=== PATIENT | female | born 1955 | race Caucasian/White ===

== ENCOUNTER 2017-07-07 14:29 | Emergency (ER) | payer MEDICAID ==
[2017-07-07 14:33] VITALS: BP 130/62; BMI 17.7
[2017-07-07 17:11] LABS: BILIRUBIN,URINE NEGATIVE (NEGATIVE); BLOOD/HEMOGLOBIN,URINE NEGATIVE (NEGATIVE); GLUCOSE, URINE NEGATIVE (NEGATIVE); KETONES,URINE NEGATIVE (NEGATIVE); LEUKOCYTE ESTERASE ,URINE 2+ (NEGATIVE); NITRITES,URINE NEGATIVE (NEGATIVE); PROTEIN,URINE NEGATIVE (NEGATIVE); UROBILINOGEN,URINE NORMAL (NORMAL)
[2017-07-07 17:21] LABS: APPEARANCE,URINE HAZY (CLEAR); COLOR,URINE YELLOW (YELLOW)
[2017-07-07 17:22] LABS: BACTERIA,URINE TRACE /HPF (NEGATIVE); RBC,URINE 0-2 /HPF (NEGATIVE); SQUAMOUS EPITHELIAL CELL,UR FEW /HPF (NEGATIVE)
--- NOTE | 2017-07-07 17:25 | DR.GENAD ---
HPI - PCP Primary Care Physician: jose - Complaint/Symptoms Chief Complaint Doctors Comments: Patient complains of problems with her bladder and has been burning when she urinates and before she urinate she has pressure and has been having lower back pain. States she was in the hospital in [place] with UTI and they gave her antibiotics for three days and she did not hurt but the pain came back. She is having swelling of her legs and has been taking a water pill for five days but stopped. She has some more water pills at home. She denies chest pain or SOB. She denies fever or chills. She denies hematuria. Chief Complaint:: patient stated that for the past 2 days her bladder has been hurting and lower back has been hurting. - Nurses notes reviewed Nurses Notes Review: Yes - Source History Provided: Patient - Mode of Arrival Mode of Arrival: Ambulatory - Timing Onset of Chief Complaint: 07/05/17 Came on: Gradually - Duration Duration: Constant How lon Duration: Days - Location Location: lower abdominal pain - Severity Severity: Mild - Modifying Factors Worsens:: urinating Improves:: nothing PMH - PMH Past Medical History: Yes Past Medical History: COPD, Depression, Hypertension, [place] Past Surgical History: Yes Surgical History: Angioplasty/Stents, Cholecystectomy, Tonsillectomy - Family History History of Family Medical Conditions: Yes Family Medical History: Diabetes Mellitus, Hypertension - Social History Does patient currently use any type of tobacco product: No Have you used tobacco products in the last 12 months: No Type of Tobacco Use: None Does any household member use tobacco: No Alcohol Use: None Do you use any recreational Drugs:: No Lives With: Family Lives Where: Home - infectious screening In the last 2 months have you had wt loss of >10#?: NO Have you had fever, night sweats or hemotysis?: No Have you traveled outside the country in the last 6 months?: No Isolation: Standard ROS - Review of Systems Constitutional: No Symptoms Reported Eyes: No Symptoms Reported ENTM: No Symptoms Reported Respiratoy: No Symptoms Reported Cardiovascular: No Symptoms Reported Gastrointestinal/Abdominal: No Symptoms Reported Genitourinary: No Symptoms Reported, Dysuria, Frequency Neurological: No Symptoms Reported Musculoskeletal: Back Pain. negative: No Symptoms Reported, See HPI, Gout, Joint Pain, Joint Swelling, Muscle Pain, Muscle Stiffness, Neck Pain, Right, Left, Neck, Chest wall, Rib(s), Back, Shoulder, Arm, Elbow, Forearm, Wrist, Hand , Pelvis, Hip, Leg, Knee, Ankle, Foot, Other Integumentary: No Symptoms Reported Hematologic/Lymphatic: No Symptoms Reported Endocrine: No Symptoms Reported Psychiatric: No Symptoms Reported PE - Vital Signs Vitals: Temperature 98.6 F Pulse Rate 75 Respiratory Rate 16 Blood Pressure 130/62 O2 Sat by Pulse Oximetry 100 - General Limitations: No Limitations General Appearance: Alert, In Distress (slight) - Head Head Exam: Normal Inspection, Atraumatic, Normocephalic - Eyes Eye exam: Normal Appearance, PERRL, EOMI. negative: Scleral Icterus, Conjunctival Injection, Nystagmus, Miosis, Mydrasis, Periorbital Swelling, Periorbital Tenderness, Other - ENT ENT Exam: Normal Exam, Normal Oropharynx, Normal External Ear Exam, Mucous Membranes Moist, TM's Normal Bilaterally External Ear Exam: Normal External Inspection TM/Canal Exam: Bilateral Normal Nose Exam: Normal Nose Exam Mouth Exam: Normal Inspection Throat Exam: Normal Inspection - Neck Neck Exam: Normal Inspection, Full ROM, Trachea Midline - Chest Chest Inspection: Normal Inspection - Respiratory Respiratory Exam: Normal Lung Sounds Bilat Respiratory Exam: Bilateral Clear to Auscultation - Cardiovascular Cardiovascular Exam: Regular Rate, Normal Rhythm, Normal Heart Sounds - Abdominal Exam Abdominal Exam: Normal Inspection, Normal Bowel Sounds, Soft, Tenderness ( suprapubic tenderness) - Extremities Extremities Exam: Normal Inspection, Full ROM, Normal Capillary Refill. negative: Tenderness, Edema, Joint Swelling, Calf Tenderness, Other - Back Back Exam: Normal Inspection, Full ROM - Neurologic Neurological Exam: Alert, Oriented X3, CN II-XII Intact, Normal Gait, Reflexes Normal - Psychiatric Psychiatric Exam: Normal Affect, Normal Mood - Skin Skin Exam: Warm, Dry, Intact, Normal Color ROR - Labs Reviewed Laboratory Results Reviewed?: Yes (all lab work reviewed and discussed with patient) Laboratory: Specimen Type Clean catch urine 07/07/17 16:59 Urine Color Yellow (YELLOW) 07/07/17 16:59 Urine Appearance Hazy (CLEAR) 07/07/17 16:59 Urine pH 5.0 (5.0 - 8.0) 07/07/17 16:59 Ur Specific [place] 1.010 (1.000-1.030) 07/07/17 16:59 Urine Protein Negative (NEGATIVE) 07/07/17 16:59 Urine Glucose (UA) Negative (NEGATIVE) 07/07/17 16:59 Urine Ketones Negative (NEGATIVE) 07/07/17 16:59 Urine Occult Blood Negative (NEGATIVE) 07/07/17 16:59 Urine Nitrite Negative (NEGATIVE) 07/07/17 16:59 Urine Bilirubin Negative (NEGATIVE) 07/07/17 16:59 Urine Urobilinogen Normal (NORMAL) 07/07/17 16:59 Ur Leukocyte Esterase 2+ (NEGATIVE) 07/07/17 16:59 Urine RBC 0-2 /HPF (NEGATIVE) 07/07/17 16:59 Urine WBC 3-5 /HPF (NEGATIVE) 07/07/17 16:59 Ur Squamous Epith Cells Few /HPF (NEGATIVE) 07/07/17 16:59 Urine Bacteria Trace /HPF (NEGATIVE) 07/07/17 16:59 Ur Culture Indicated? No/not indicated 07/07/17 16:59 - Diagnosis Discharge Problem: Cystitis, Dysuria, Abdominal pain - Discharge Plan Disposition: HOME, SELF-CARE Condition: Stable Prescriptions: Levofloxacin [LEVAQUIN TAB 500 MG *] 500 mg PO Q24H #7 tab Phenazopyridine HCl [Pyridium] 200 mg PO BID PRN #20 tablet PRN Reason: - Follow ups/Referrals Follow ups/Referrals: JADEN SEGAL [Primary Care Provider] - 3 days - Instructions Instructions: Dysuria, Urinary Tract Infection, Adult, [id number], Abdominal Pain, Adult, [id number]
[2017-07-07] MEDS ORDERED: PYRIDIUM PO STA (17:28)
[2017-07-07] MEDS ORDERED: NORCO 5/325 MG TAB PO ONE (17:29)
[2017-07-07] MEDS ORDERED: PYRIDIUM PO ONE (17:36)
[2017-07-07] MEDS ORDERED: NORCO 5/325 MG TAB ONE (17:36)
[2017-07-07] MEDS ORDERED: LEVAQUIN TAB 500 MG ONE (17:36)
[2017-07-07] MEDS ORDERED: LEVAQUIN TAB 500 MG PO SCH (18:00)
== END 2017-07-07 18:28 | disposition home or self-care (01) ==
LOC: ER 14:51
DX: N30.90 Cystitis, unspecified without hematuria (principal); R30.0 Dysuria; R10.84 Generalized abdominal pain
CPT/HCPCS: 81001; 99282; 99283